=== PATIENT | female | born 1950 | race Caucasian/White ===

== ENCOUNTER 2018-04-22 08:11 | Inpatient (IN) | payer MEDICARE, OTHER ==
[2018-04-22] MEDS: LACTATED RINGER'S 1,000 ML IV* (09:10)
[2018-04-22] MEDS: DEXAMETHASONE 4 MG/ML 1 ML INJ IV (09:13)
[2018-04-22] MEDS: ACETAMINOPHEN 1000MG/100ML IV 100 ML IVPB (09:13)
[2018-04-22] MEDS: LANSOPRAZOLE 30 MG CAP PO (09:14)
[2018-04-22] MEDS: ONDANSETRON 4 MG INJ IV ×5 (09:14→23:19)
[2018-04-22] MEDS: oxyCODONE (CR) 10 MG TAB [oxyCONTIN] PO (09:14)
[2018-04-22] MEDS ORDERED: CEFAZOLIN 1 GM/50 ML (PMX) 50 ML IVPB (09:30)
[2018-04-22] MEDS ORDERED: morphine SULFATE/PF (10 MG/10 ML) INJ (11:02)
[2018-04-22] MEDS ORDERED: CEFAZOLIN 1 GM INJ (11:02)
[2018-04-22] MEDS ORDERED: PROPOFOL 20 ML (11:02)
[2018-04-22] MEDS ORDERED: MIDAZOLAM 1 MG/ML 2 ML INJ (11:02)
[2018-04-22] MEDS ORDERED: ROCURONIUM 50 MG INJ (11:02)
[2018-04-22] MEDS: TRANEXAMIC ACID 1,000 MG in NS 100 ML PRE-OP X1 IVPB (11:57)
[2018-04-22] MEDS ORDERED: oxyCODONE 5 MG TAB PO (12:00)
[2018-04-22] MEDS ORDERED: NA PHOSPHATE/BIPHOS 133 ML ENEMA PR (12:00)
[2018-04-22] MEDS ORDERED: BETHANECHOL 25 MG TAB PO (12:00)
[2018-04-22] MEDS ORDERED: BISACODYL 10 MG SUPP PR (12:00)
[2018-04-22] MEDS ORDERED: DIPHENHYDRAMINE 50 MG INJ IV ×2 (12:00→13:00)
[2018-04-22] MEDS ORDERED: NALOXONE (0.4 MG/ML) INJ IV ×2 (12:00→13:00)
[2018-04-22] MEDS ORDERED: PHENYLephrine (100 MCG/ML) 5ML SYG (12:24)
[2018-04-22] MEDS ORDERED: KETOROLAC 30 MG INJ (12:28)
[2018-04-22] MEDS ORDERED: METOCLOPRAMIDE 10 MG INJ (12:28)
[2018-04-22] MEDS ORDERED: ONDANSETRON 4 MG INJ (12:28)
[2018-04-22] MEDS ORDERED: DEXAMETHASONE 4 MG/ML 1 ML INJ (12:28)
[2018-04-22] MEDS: HIP PAIN COCKTAIL (CEFUROXIME) INJ (12:45)
[2018-04-22] MEDS: POLYMYXIN B 500000 UNIT INJ (12:45)
[2018-04-22] MEDS: BACITRACIN 50000 UNITS INJ IRR (12:45)
[2018-04-22] MEDS ORDERED: LABETALOL HCL 20MG INJ IV (13:00)
[2018-04-22] MEDS ORDERED: NALBUPHINE HCL (10 MG/1 ML) INJ IV (13:00)
[2018-04-22] MEDS ORDERED: HYDROmorphONE 0.5 MG/0.5 ML SYG IV ×2 (13:00)
[2018-04-22] MEDS ORDERED: HYDROmorphONE 1 MG/5 ML IV SYRINGE IV ×3 (13:00)
[2018-04-22] MEDS ORDERED: FENTAnyl 50 MCG/ML VIAL IV ×3 (13:00)
[2018-04-22] MEDS ORDERED: ONDANSETRON 4 MG INJ IV (13:00)
[2018-04-22] MEDS ORDERED: hydrALAzine 20 MG INJ IV (13:00)
[2018-04-22] MEDS ORDERED: OXYCODONE/ACETAMINOPHEN (5/325) TAB PO ×2 (13:00)
[2018-04-22] MEDS ORDERED: ACETAMINOPHEN 500 MG TAB PO (13:00)
[2018-04-22] MEDS ORDERED: METOCLOPRAMIDE 10 MG INJ IV (13:00)
[2018-04-22] MEDS ORDERED: MEPERIDINE 25 MG INJ IV (13:00)
[2018-04-22] MEDS ORDERED: morphine 2 MG INJ IV ×2 (13:00)
[2018-04-22] MEDS ORDERED: ROPIVACAINE 0.5 % 30 ML VIAL (13:20)
[2018-04-22] MEDS ORDERED: SUGAMMADEX SODIUM 200 MG/2 ML VIAL IV (13:29)
[2018-04-22] MEDS: TRANEXAMIC ACID 1,000 MG in NS 100 ML INTRA-OP X1 IVPB (14:00)
[2018-04-22] MEDS: CEFAZOLIN 1 GM/50 ML (PMX) 50 ML IVPB ×2 (14:33→22:23)
[2018-04-22] MEDS: SOD CHLORIDE 0.9% 1,000 ML IV ×3 (14:33→21:24)
[2018-04-22] MEDS: ASPIRIN (EC) 325 MG TAB PO ×2 (14:40→20:46)
[2018-04-22] MEDS: DOCUSATE SODIUM 100 MG CAP PO (14:41)
[2018-04-22] MEDS: ALBUMIN HUMAN 5% 250 ML IV (14:55)
[2018-04-22] MEDS: EPHEDrine SULFATE 50 MG/5 ML SYG IV ×3 (15:14→16:13)
[2018-04-22] MEDS: DIPHENHYDRAMINE 50 MG INJ IV ×2 (15:35→16:16)
[2018-04-22 18:00] LABS: ADD MAN DIFF? NO
[2018-04-22 18:01] LABS: ABNORMAL IP MESSAGE 1; BASOPHILS % 0.3 % (0.0-2.0); HEMATOCRIT 36.7 % (37.0-47.0); HEMOGLOBIN 11.4 g/dl (12.0-16.0); LYMPHOCYTES # 0.5 10^3/ul (0.8-2.9); LYMPHOCYTES % 4.7 % (15.0-51.0); MEAN CORPUSCULAR HGB CONC 31.1 g/dl (32.0-37.0); MEAN CORPUSCULAR VOLUME 90.2 fl (82.0-101.0); MEAN PLATELET VOLUME 10.7 fl (7.4-10.4); MONOCYTE # 0.1 10^3/ul (0.3-0.9); MONOCYTES % 1.1 % (0.0-11.0); NEUTROPHIL # 10.1 10^3/ul (1.6-7.5); NEUTROPHILS % 92.8 % (39.0-77.0); PLATELET COUNT 203 10^3/UL (140-415); RED BLOOD COUNT 4.07 10^6/ul (4.20-5.40); RED CELL DISTRIBUTION WIDTH 12.6 % (11.5-14.5)
[2018-04-22 18:01] LABS: WHITE BLOOD COUNT 10.9 10^3/ul (4.8-10.8)
[2018-04-22 18:19] LABS: ALANINE AMINOTRANSFERASE 40 IU/L (13-69); ALBUMIN 3.6 g/dl (3.3-4.9); ALBUMIN/GLOBULIN RATIO 1.63; ALKALINE PHOSPHATASE 46 IU/L (42-121); ANION GAP 13 (8-16); ASPARTATE AMINO TRANSFERASE 27 IU/L (15-46); BILIRUBIN,INDIRECT 0.4 mg/dl (0-1.1); BILIRUBIN,TOTAL 0.4 mg/dl (0.2-1.3); BLOOD UREA NITROGEN 14 mg/dl (7-20); CARBON DIOXIDE 23 mmol/L (21-31); CHLORIDE 110 mmol/L (97-110); GLUCOSE 158 mg/dl (70-220); POTASSIUM 4.6 mmol/L (3.5-5.1); SODIUM 141 mmol/L (135-144); TOTAL PROTEIN 5.8 g/dl (6.1-8.1)
[2018-04-22 18:25] LABS: POSITIVE DIFF @See below
[2018-04-22] MEDS: GABAPENTIN 100 MG CAP PO (20:43)
[2018-04-22] MEDS: ATORVASTATIN 20 MG TAB PO (20:46)
[2018-04-23] MEDS ORDERED: ALBUTEROL/IPRATROPIUM (NEB) 3 ML AMP HHN (01:30)
[2018-04-23] MEDS: SOD CHLORIDE 0.9% 500 ML IV ×2 (01:41→02:47)
[2018-04-23] MEDS: ONDANSETRON 4 MG INJ IV (05:20)
[2018-04-23 05:23] LABS: ADD MAN DIFF? NO
[2018-04-23 05:30] LABS: WHITE BLOOD COUNT 10.6 10^3/ul (4.8-10.8)
[2018-04-23 05:30] LABS: BASOPHILS % 0.1 % (0.0-2.0); HEMATOCRIT 29.8 % (37.0-47.0); HEMOGLOBIN 9.4 g/dl (12.0-16.0); LYMPHOCYTES % 8.9 % (15.0-51.0); MEAN CORPUSCULAR HEMOGLOBIN 28.4 pg (29.0-33.0); MEAN CORPUSCULAR HGB CONC 31.5 g/dl (32.0-37.0); MEAN PLATELET VOLUME 11.4 fl (7.4-10.4); MONOCYTE # 0.9 10^3/ul (0.3-0.9); MONOCYTES % 8.5 % (0.0-11.0); NEUTROPHIL # 8.7 10^3/ul (1.6-7.5); NEUTROPHILS % 81.9 % (39.0-77.0); PLATELET COUNT 163 10^3/UL (140-415); RED BLOOD COUNT 3.31 10^6/ul (4.20-5.40); RED CELL DISTRIBUTION WIDTH 12.8 % (11.5-14.5)
[2018-04-23 06:00] LABS: ANION GAP 11 (8-16); BLOOD UREA NITROGEN 12 mg/dl (7-20); CALCIUM 7.4 mg/dl (8.4-10.2); CARBON DIOXIDE 21 mmol/L (21-31); CHLORIDE 107 mmol/L (97-110); CREATININE 0.58 mg/dl (0.44-1.00); GLUCOSE 139 mg/dl (70-220); POTASSIUM 3.9 mmol/L (3.5-5.1); SODIUM 135 mmol/L (135-144)
[2018-04-23] MEDS: CEFAZOLIN 1 GM/50 ML (PMX) 50 ML IVPB (06:04)
[2018-04-23] MEDS: ESCITALOPRAM 10 MG TAB PO (09:54)
[2018-04-23] MEDS: CELECOXIB 200 MG CAP PO ×2 (09:54→20:30)
[2018-04-23] MEDS: DOCUSATE SODIUM 100 MG CAP PO ×2 (09:54→20:30)
[2018-04-23] MEDS: FERROUS FUMARATE (SR) TAB PO ×2 (09:55→20:30)
[2018-04-23] MEDS: GABAPENTIN 100 MG CAP PO ×2 (09:55→20:30)
[2018-04-23] MEDS: ASPIRIN (EC) 325 MG TAB PO ×2 (10:00→20:30)
[2018-04-23] MEDS: HYDROCODONE/APAP (5/325) TAB PO (10:24)
[2018-04-23] MEDS: SOD CHLORIDE 0.9% 1,000 ML IV (11:30)
[2018-04-23] MEDS: oxyCODONE 5 MG TAB PO (16:25)
[2018-04-23] MEDS: ATORVASTATIN 20 MG TAB PO (20:30)
[2018-04-24] MEDS: SOD CHLORIDE 0.9% 1,000 ML IV ×2 (01:04→13:34)
[2018-04-24] MEDS: oxyCODONE 5 MG TAB PO ×5 (03:36→21:09)
[2018-04-24 05:14] LABS: ADD MAN DIFF? NO; BASOPHILS % 0.3 % (0.0-2.0); EOSINOPHILS % 0.4 % (0.0-7.0); HEMATOCRIT 30.4 % (37.0-47.0); HEMOGLOBIN 9.8 g/dl (12.0-16.0); LYMPHOCYTES # 2.2 10^3/ul (0.8-2.9); MEAN CORPUSCULAR HEMOGLOBIN 28.7 pg (29.0-33.0); MEAN CORPUSCULAR HGB CONC 32.2 g/dl (32.0-37.0); MEAN CORPUSCULAR VOLUME 89.1 fl (82.0-101.0); MEAN PLATELET VOLUME 11.4 fl (7.4-10.4); MONOCYTES % 10.3 % (0.0-11.0); NEUTROPHIL # 6.6 10^3/ul (1.6-7.5); NEUTROPHILS % 66.2 % (39.0-77.0); PLATELET COUNT 184 10^3/UL (140-415); RED BLOOD COUNT 3.41 10^6/ul (4.20-5.40); RED CELL DISTRIBUTION WIDTH 13.2 % (11.5-14.5)
[2018-04-24 05:14] LABS: WHITE BLOOD COUNT 9.9 10^3/ul (4.8-10.8)
[2018-04-24] MEDS: PANTOPRAZOLE (EC) 40 MG TAB PO (05:36)
[2018-04-24 05:48] LABS: ANION GAP 10 (8-16); BLOOD UREA NITROGEN 17 mg/dl (7-20); CALCIUM 8.1 mg/dl (8.4-10.2); CARBON DIOXIDE 22 mmol/L (21-31); CHLORIDE 110 mmol/L (97-110); CREATININE 0.68 mg/dl (0.44-1.00); GLUCOSE 107 mg/dl (70-220); POTASSIUM 3.5 mmol/L (3.5-5.1); SODIUM 138 mmol/L (135-144)
[2018-04-24 05:52] LABS: FREE T4 (FREE THYROXINE) 1.41 ng/dl (0.78-2.44)
[2018-04-24] MEDS: DOCUSATE SODIUM 100 MG CAP PO ×2 (08:37→20:00)
[2018-04-24] MEDS: ESCITALOPRAM 10 MG TAB PO (08:37)
[2018-04-24] MEDS: CELECOXIB 200 MG CAP PO ×2 (08:37→20:00)
[2018-04-24] MEDS: FERROUS FUMARATE (SR) TAB PO ×2 (08:38→20:00)
[2018-04-24] MEDS: ASPIRIN (EC) 325 MG TAB PO ×2 (08:38→20:00)
[2018-04-24] MEDS: GABAPENTIN 100 MG CAP PO ×2 (08:38→20:00)
[2018-04-24] MEDS: ATORVASTATIN 20 MG TAB PO (20:00)
[2018-04-25] MEDS ORDERED: ONDANSETRON 4 MG INJ IV
[2018-04-25] MEDS: SOD CHLORIDE 0.9% 1,000 ML IV ×2 (02:04→14:34)
[2018-04-25 05:41] LABS: ADD MAN DIFF? NO
[2018-04-25 05:44] LABS: WHITE BLOOD COUNT 8.4 10^3/ul (4.8-10.8)
[2018-04-25 05:44] LABS: BASOPHIL # 0.1 10^3/ul (0.0-0.1); BASOPHILS % 0.6 % (0.0-2.0); EOSINOPHILS # 0.2 10^3/ul (0.0-0.5); EOSINOPHILS % 1.8 % (0.0-7.0); HEMOGLOBIN 9.2 g/dl (12.0-16.0); LYMPHOCYTES # 1.8 10^3/ul (0.8-2.9); MEAN CORPUSCULAR HEMOGLOBIN 27.6 pg (29.0-33.0); MEAN CORPUSCULAR HGB CONC 30.7 g/dl (32.0-37.0); MEAN CORPUSCULAR VOLUME 90.1 fl (82.0-101.0); MEAN PLATELET VOLUME 11.6 fl (7.4-10.4); MONOCYTES % 11.8 % (0.0-11.0); NEUTROPHIL # 5.4 10^3/ul (1.6-7.5); NEUTROPHILS % 64.3 % (39.0-77.0); PLATELET COUNT 174 10^3/UL (140-415); RED BLOOD COUNT 3.33 10^6/ul (4.20-5.40); RED CELL DISTRIBUTION WIDTH 13.2 % (11.5-14.5)
[2018-04-25 06:00] LABS: ANION GAP 10 (8-16); BLOOD UREA NITROGEN 13 mg/dl (7-20); CALCIUM 8.2 mg/dl (8.4-10.2); CARBON DIOXIDE 28 mmol/L (21-31); CHLORIDE 103 mmol/L (97-110); CREATININE 0.61 mg/dl (0.44-1.00); GLUCOSE 101 mg/dl (70-220); POTASSIUM 4.1 mmol/L (3.5-5.1); SODIUM 137 mmol/L (135-144)
[2018-04-25] MEDS: SENNA/DOCUSATE NA (8.6MG/50MG) TAB PO (06:12)
[2018-04-25] MEDS: PANTOPRAZOLE (EC) 40 MG TAB PO (06:12)
[2018-04-25] MEDS: oxyCODONE 5 MG TAB PO (06:38)
[2018-04-25] MEDS: FERROUS FUMARATE (SR) TAB PO ×2 (08:58→20:30)
[2018-04-25] MEDS: CELECOXIB 200 MG CAP PO ×2 (08:59→20:30)
[2018-04-25] MEDS: DOCUSATE SODIUM 100 MG CAP PO ×2 (08:59→20:30)
[2018-04-25] MEDS: GABAPENTIN 100 MG CAP PO ×2 (08:59→20:30)
[2018-04-25] MEDS: ESCITALOPRAM 10 MG TAB PO (08:59)
[2018-04-25] MEDS: ASPIRIN (EC) 325 MG TAB PO ×2 (08:59→20:30)
[2018-04-25] MEDS: ATORVASTATIN 20 MG TAB PO (20:30)
[2018-04-25] MEDS: MAGNESIUM HYDROXIDE 30ML CUP PO (20:30)
[2018-04-26] MEDS: SOD CHLORIDE 0.9% 1,000 ML IV (03:04)
[2018-04-26 05:17] LABS: ADD MAN DIFF? NO
[2018-04-26 05:23] LABS: WHITE BLOOD COUNT 6.9 10^3/ul (4.8-10.8)
[2018-04-26 05:23] LABS: BASOPHILS % 0.4 % (0.0-2.0); EOSINOPHILS # 0.2 10^3/ul (0.0-0.5); EOSINOPHILS % 3.4 % (0.0-7.0); HEMATOCRIT 28.5 % (37.0-47.0); HEMOGLOBIN 9.3 g/dl (12.0-16.0); LYMPHOCYTES # 1.9 10^3/ul (0.8-2.9); LYMPHOCYTES % 27.4 % (15.0-51.0); MEAN CORPUSCULAR HGB CONC 32.6 g/dl (32.0-37.0); MEAN CORPUSCULAR VOLUME 88.8 fl (82.0-101.0); MEAN PLATELET VOLUME 11.2 fl (7.4-10.4); MONOCYTE # 0.8 10^3/ul (0.3-0.9); MONOCYTES % 10.9 % (0.0-11.0); NEUTROPHIL # 3.9 10^3/ul (1.6-7.5); NEUTROPHILS % 57.2 % (39.0-77.0); PLATELET COUNT 195 10^3/UL (140-415); RED BLOOD COUNT 3.21 10^6/ul (4.20-5.40); RED CELL DISTRIBUTION WIDTH 12.9 % (11.5-14.5)
[2018-04-26] MEDS: PANTOPRAZOLE (EC) 40 MG TAB PO (05:27)
[2018-04-26] MEDS: SENNA/DOCUSATE NA (8.6MG/50MG) TAB PO (05:27)
[2018-04-26 05:54] LABS: ANION GAP 9 (8-16); BLOOD UREA NITROGEN 11 mg/dl (7-20); CALCIUM 8.3 mg/dl (8.4-10.2); CARBON DIOXIDE 31 mmol/L (21-31); CHLORIDE 106 mmol/L (97-110); CREATININE 0.64 mg/dl (0.44-1.00); GLUCOSE 101 mg/dl (70-220); POTASSIUM 3.8 mmol/L (3.5-5.1); SODIUM 142 mmol/L (135-144)
[2018-04-26] MEDS: CELECOXIB 200 MG CAP PO (09:17)
[2018-04-26] MEDS: GABAPENTIN 100 MG CAP PO (09:17)
[2018-04-26] MEDS: ASPIRIN (EC) 325 MG TAB PO (09:17)
[2018-04-26] MEDS: FERROUS FUMARATE (SR) TAB PO (09:18)
[2018-04-26] MEDS: ESCITALOPRAM 10 MG TAB PO (09:18)
[2018-04-26] MEDS: oxyCODONE 5 MG TAB PO (11:51)
== END 2018-04-26 12:08 | disposition home health service (06) | DRG 470 ==
LOC: REC 08:11 → MS1 16:34
PROC: 0SRD0J9 Replacement of Left Knee Joint with Synthetic Substitute, Cemented, Open Approach (ICD-10-PCS; principal; 2018-04-22 10:30)
DX: M17.12 Unilateral primary osteoarthritis, left knee (principal); D64.89 Other specified anemias; E78.5 Hyperlipidemia, unspecified; L29.9 Pruritus, unspecified; F32.9 Major depressive disorder, single episode, unspecified; Z72.89 Other problems related to lifestyle; I95.9 Hypotension, unspecified
CPT/HCPCS: 73560; 80048; 80053; 82533; 84439; 84443; 85025; 87086; 88304; 97110; 97116; 97162; 97166; 97530; 97535

== ENCOUNTER 2018-05-14 09:13 | Inpatient (IN) | payer MEDICARE, OTHER ==
[2018-05-14] MEDS ORDERED: oxyCODONE 5 MG TAB PO ×3 (11:00)
[2018-05-14] MEDS ORDERED: BISACODYL 10 MG SUPP PR (11:00)
[2018-05-14] MEDS ORDERED: NALOXONE (0.4 MG/ML) INJ IV (11:00)
[2018-05-14] MEDS ORDERED: MAGNESIUM HYDROXIDE 30ML CUP PO (11:00)
[2018-05-14] MEDS ORDERED: SENNA/DOCUSATE NA (8.6MG/50MG) TAB PO (11:00)
[2018-05-14] MEDS ORDERED: NA PHOSPHATE/BIPHOS 133 ML ENEMA PR (11:00)
[2018-05-14] MEDS ORDERED: BETHANECHOL 25 MG TAB PO (11:00)
[2018-05-14] MEDS: DEXAMETHASONE 4 MG/ML 1 ML INJ IV (12:00)
[2018-05-14] MEDS: ONDANSETRON 4 MG INJ IV ×4 (12:00→23:00)
[2018-05-14] MEDS ORDERED: HIP PAIN COCKTAIL (CEFUROXIME) INJ (12:00)
[2018-05-14] MEDS: TRANEXAMIC ACID 1,000 MG in NS 100 ML PRE-OP X1 IVPB (12:00)
[2018-05-14] MEDS: oxyCODONE (CR) 10 MG TAB [oxyCONTIN] PO (12:00)
[2018-05-14] MEDS: LANSOPRAZOLE 30 MG CAP PO (12:00)
[2018-05-14] MEDS: LACTATED RINGER'S 1,000 ML IV* (12:00)
[2018-05-14] MEDS: TRANEXAMIC ACID 1,000 MG in NS 100 ML INTRA-OP X1 IVPB (12:00)
[2018-05-14] MEDS: ACETAMINOPHEN 1000MG/100ML IV 100 ML IVPB (13:15)
[2018-05-14] MEDS ORDERED: FENTAnyl 50 MCG/ML VIAL (13:24)
[2018-05-14] MEDS ORDERED: MIDAZOLAM 1 MG/ML 2 ML INJ (13:24)
[2018-05-14] MEDS ORDERED: morphine SULFATE/PF (10 MG/10 ML) INJ (13:25)
[2018-05-14] MEDS: VANCOMYCIN 1 GM INJ (14:42)
[2018-05-14] MEDS: POLYMYXIN/BACITRACIN 1L IRRIG IRR (14:42)
[2018-05-14] MEDS: TOBRAMYCIN 1.2 GM POWDER (14:43)
[2018-05-14] MEDS: POLYMYXIN B 500000 UNIT INJ ×2 (14:44)
[2018-05-14] MEDS: BACITRACIN 50000 UNITS INJ IRR ×3 (14:45→14:46)
[2018-05-14] MEDS ORDERED: ROCURONIUM 50 MG INJ (15:20)
[2018-05-14] MEDS ORDERED: CEFAZOLIN 1 GM INJ (15:20)
[2018-05-14] MEDS ORDERED: LIDOCAINE 2% (SDV) 5 ML INJ (15:20)
[2018-05-14] MEDS ORDERED: ETOMIDATE 20 MG INJ (15:20)
[2018-05-14] MEDS ORDERED: ONDANSETRON 4 MG INJ (15:21)
[2018-05-14] MEDS ORDERED: HYDROmorphONE 1 MG/5 ML IV SYRINGE IV ×2 (15:30)
[2018-05-14] MEDS ORDERED: METOCLOPRAMIDE 10 MG INJ IV (15:30)
[2018-05-14] MEDS ORDERED: DIPHENHYDRAMINE 50 MG INJ IV (15:30)
[2018-05-14] MEDS ORDERED: ONDANSETRON 4 MG INJ IV (15:30)
[2018-05-14] MEDS ORDERED: FENTAnyl 50 MCG/ML VIAL IV (15:30)
[2018-05-14] MEDS ORDERED: MEPERIDINE 25 MG INJ IV (15:30)
[2018-05-14] MEDS ORDERED: VANCOMYCIN IV PER PHARMACY XX (16:00)
[2018-05-14] MEDS: ASPIRIN (EC) 325 MG TAB PO ×2 (16:19→21:18)
[2018-05-14] MEDS: CEFAZOLIN 1 GM/50 ML (PMX) 50 ML IVPB (16:19)
[2018-05-14] MEDS: DOCUSATE SODIUM 100 MG CAP PO (16:19)
[2018-05-14] MEDS ORDERED: DIPHENHYDRAMINE 50 MG INJ IM (18:00)
[2018-05-14] MEDS: DIPHENHYDRAMINE 50 MG INJ IV (18:01)
[2018-05-14] MEDS: SOD CHLORIDE 0.9% 1,000 ML IV ×2 (18:02→23:03)
[2018-05-14] MEDS: VANCOMYCIN 1 GM (PMX) 250 ML IVPB (18:02)
[2018-05-14] MEDS: GABAPENTIN 100 MG CAP PO (21:17)
[2018-05-14] MEDS: KETOROLAC 30 MG INJ IV (21:18)
[2018-05-15] MEDS: SOD CHLORIDE 0.9% 250 ML IV ×2 (02:54→04:55)
[2018-05-15] MEDS: traMADol 50 MG TAB PO ×3 (02:56→22:47)
[2018-05-15] MEDS: SOD CHLORIDE 0.9% 1,000 ML IV ×2 (04:54→17:03)
[2018-05-15] MEDS: ONDANSETRON 4 MG INJ IV (05:00)
[2018-05-15 05:04] LABS: ADD MAN DIFF? NO; BASOPHILS % 0.6 % (0.0-2.0); EOSINOPHILS # 0.3 10^3/ul (0.0-0.5); EOSINOPHILS % 4.7 % (0.0-7.0); HEMATOCRIT 28.6 % (37.0-47.0); HEMOGLOBIN 8.7 g/dl (12.0-16.0); LYMPHOCYTES # 1.1 10^3/ul (0.8-2.9); LYMPHOCYTES % 16.1 % (15.0-51.0); MEAN CORPUSCULAR HGB CONC 30.4 g/dl (32.0-37.0); MEAN CORPUSCULAR VOLUME 88.8 fl (82.0-101.0); MEAN PLATELET VOLUME 9.8 fl (7.4-10.4); MONOCYTES % 14.6 % (0.0-11.0); NEUTROPHIL # 4.1 10^3/ul (1.6-7.5); NEUTROPHILS % 62.2 % (39.0-77.0); PLATELET COUNT 381 10^3/UL (140-415); RED BLOOD COUNT 3.22 10^6/ul (4.20-5.40); RED CELL DISTRIBUTION WIDTH 12.5 % (11.5-14.5)
[2018-05-15 05:04] LABS: WHITE BLOOD COUNT 6.6 10^3/ul (4.8-10.8)
[2018-05-15 05:33] LABS: CHOL/HDL RATIO 3.5 RATIO; HDL CHOLESTEROL 29 mg/dl (35-98); LDL CHOLESTEROL,CALCULATED 58 mg/dl; TRIGLYCERIDES 86 mg/dl (0-149)
[2018-05-15 05:33] LABS: CHOLESTEROL 104 mg/dl (100-200)
[2018-05-15 05:34] LABS: ANION GAP 9 (8-16); BLOOD UREA NITROGEN 12 mg/dl (7-20); CALCIUM 9.1 mg/dl (8.4-10.2); CARBON DIOXIDE 27 mmol/L (21-31); CHLORIDE 110 mmol/L (97-110); CREATININE 0.98 mg/dl (0.44-1.00); GLUCOSE 113 mg/dl (70-220); SODIUM 141 mmol/L (135-144)
[2018-05-15] MEDS: VANCOMYCIN 1 GM (PMX) 250 ML IVPB (05:57)
[2018-05-15] MEDS: CELECOXIB 200 MG CAP PO ×2 (08:22→20:47)
[2018-05-15] MEDS: FERROUS FUMARATE (SR) TAB PO ×2 (08:22→20:47)
[2018-05-15] MEDS: DOCUSATE SODIUM 100 MG CAP PO ×2 (08:22→20:47)
[2018-05-15] MEDS: ASPIRIN (EC) 325 MG TAB PO ×2 (08:22→20:47)
[2018-05-15] MEDS: GABAPENTIN 100 MG CAP PO ×2 (08:22→20:47)
[2018-05-15] MEDS ORDERED: OXYCODONE/ACETAMINOPHEN (5/325) TAB PO ×2 (16:00)
[2018-05-15] MEDS: DIPHENHYDRAMINE 50 MG INJ IV ×2 (16:27→16:32)
[2018-05-15] MEDS: ACETAMINOPHEN 325 MG TAB PO (16:31)
[2018-05-15] MEDS ORDERED: VANCOMYCIN 1 GM (PMX) 250 ML IVPB (17:29)
[2018-05-15] MEDS: VANCOMYCIN 1 GM 250 ML IVPB (17:50)
[2018-05-15] MEDS: FISH OIL 1,000 MG CAP PO (20:47)
[2018-05-16 05:38] LABS: ADD MAN DIFF? NO
[2018-05-16 05:44] LABS: WHITE BLOOD COUNT 6.7 10^3/ul (4.8-10.8)
[2018-05-16 05:44] LABS: BASOPHILS % 0.4 % (0.0-2.0); EOSINOPHILS # 0.6 10^3/ul (0.0-0.5); EOSINOPHILS % 8.2 % (0.0-7.0); HEMATOCRIT 28.5 % (37.0-47.0); HEMOGLOBIN 9.1 g/dl (12.0-16.0); LYMPHOCYTES # 1.2 10^3/ul (0.8-2.9); LYMPHOCYTES % 17.5 % (15.0-51.0); MEAN CORPUSCULAR HEMOGLOBIN 27.3 pg (29.0-33.0); MEAN CORPUSCULAR HGB CONC 31.9 g/dl (32.0-37.0); MEAN CORPUSCULAR VOLUME 85.6 fl (82.0-101.0); MEAN PLATELET VOLUME 9.8 fl (7.4-10.4); MONOCYTE # 0.9 10^3/ul (0.3-0.9); MONOCYTES % 12.6 % (0.0-11.0); PLATELET COUNT 371 10^3/UL (140-415); RED BLOOD COUNT 3.33 10^6/ul (4.20-5.40); RED CELL DISTRIBUTION WIDTH 12.5 % (11.5-14.5)
[2018-05-16 06:15] LABS: ANION GAP 6 (8-16); BLOOD UREA NITROGEN 8 mg/dl (7-20); CARBON DIOXIDE 29 mmol/L (21-31); CHLORIDE 110 mmol/L (97-110); CREATININE 0.75 mg/dl (0.44-1.00); GLUCOSE 98 mg/dl (70-220); POTASSIUM 3.3 mmol/L (3.5-5.1); SODIUM 142 mmol/L (135-144)
[2018-05-16 06:20] LABS: VANCOMYCIN,TROUGH 10.5 ug/ml (10.0-20.0)
[2018-05-16] MEDS: VANCOMYCIN 1 GM 250 ML IVPB (06:28)
[2018-05-16] MEDS: PANTOPRAZOLE (EC) 40 MG TAB PO (06:28)
[2018-05-16] MEDS: DOCUSATE SODIUM 100 MG CAP PO ×2 (09:00→21:00)
[2018-05-16] MEDS: GABAPENTIN 100 MG CAP PO ×2 (09:07→21:00)
[2018-05-16] MEDS: FISH OIL 1,000 MG CAP PO ×2 (09:08→21:00)
[2018-05-16] MEDS: ASPIRIN (EC) 325 MG TAB PO ×2 (09:08→21:00)
[2018-05-16] MEDS: FERROUS FUMARATE (SR) TAB PO ×2 (09:08→21:00)
[2018-05-16] MEDS: CELECOXIB 200 MG CAP PO ×2 (09:08→21:00)
[2018-05-16] MEDS: traMADol 50 MG TAB PO ×2 (09:12→16:35)
[2018-05-16] MEDS: DIPHENHYDRAMINE 50 MG INJ IV (10:53)
[2018-05-16] MEDS: SOD CHLORIDE 0.9% 1,000 ML IV (12:33)
[2018-05-16] MEDS: POTASSIUM CHLORIDE (SR) 20 MEQ TAB PO (16:35)
[2018-05-16] MEDS: VANCOMYCIN 1.25 GM in SOD CHLORIDE 0.9% 250 ML IVPB (16:41)
[2018-05-16] MEDS: ONDANSETRON 4 MG INJ IV (20:42)
[2018-05-16] MEDS ORDERED: FISH OIL 1,000 MG CAP PO (21:00)
[2018-05-17] MEDS: SOD CHLORIDE 0.9% 1,000 ML IV ×2 (01:03→13:33)
[2018-05-17] MEDS: NITROGLYCERIN (SL) 0.4 MG TAB SL (01:52)
[2018-05-17 03:18] LABS: TROPONIN-I < 0.012 ng/ml (0.000-0.120)
[2018-05-17 05:14] LABS: ADD MAN DIFF? NO
[2018-05-17 05:23] LABS: BASOPHILS % 0.3 % (0.0-2.0); EOSINOPHILS # 0.8 10^3/ul (0.0-0.5); EOSINOPHILS % 9.5 % (0.0-7.0); HEMATOCRIT 29.1 % (37.0-47.0); HEMOGLOBIN 9.4 g/dl (12.0-16.0); LYMPHOCYTES # 1.2 10^3/ul (0.8-2.9); LYMPHOCYTES % 13.6 % (15.0-51.0); MEAN CORPUSCULAR HEMOGLOBIN 27.5 pg (29.0-33.0); MEAN CORPUSCULAR HGB CONC 32.3 g/dl (32.0-37.0); MEAN CORPUSCULAR VOLUME 85.1 fl (82.0-101.0); MONOCYTE # 0.9 10^3/ul (0.3-0.9); MONOCYTES % 9.9 % (0.0-11.0); NEUTROPHIL # 5.8 10^3/ul (1.6-7.5); NEUTROPHILS % 65.6 % (39.0-77.0); PLATELET COUNT 371 10^3/UL (140-415); RED BLOOD COUNT 3.42 10^6/ul (4.20-5.40); RED CELL DISTRIBUTION WIDTH 12.9 % (11.5-14.5)
[2018-05-17 05:23] LABS: WHITE BLOOD COUNT 8.8 10^3/ul (4.8-10.8)
[2018-05-17] MEDS: VANCOMYCIN 1.25 GM in SOD CHLORIDE 0.9% 250 ML IVPB (05:25)
[2018-05-17] MEDS: PANTOPRAZOLE (EC) 40 MG TAB PO (05:58)
[2018-05-17 05:59] LABS: ANION GAP 7 (8-16); BLOOD UREA NITROGEN 6 mg/dl (7-20); CALCIUM 9.5 mg/dl (8.4-10.2); CARBON DIOXIDE 32 mmol/L (21-31); CHLORIDE 106 mmol/L (97-110); CREATININE 0.69 mg/dl (0.44-1.00); GLUCOSE 125 mg/dl (70-220); POTASSIUM 3.6 mmol/L (3.5-5.1); SODIUM 141 mmol/L (135-144)
[2018-05-17] MEDS: CELECOXIB 200 MG CAP PO ×2 (09:05→21:00)
[2018-05-17] MEDS: DOCUSATE SODIUM 100 MG CAP PO ×2 (09:05→21:00)
[2018-05-17] MEDS: GABAPENTIN 100 MG CAP PO ×2 (09:05→21:00)
[2018-05-17] MEDS: FISH OIL 1,000 MG CAP PO ×2 (09:05→21:00)
[2018-05-17] MEDS: FERROUS FUMARATE (SR) TAB PO ×2 (09:06→21:00)
[2018-05-17] MEDS: ASPIRIN (EC) 325 MG TAB PO ×2 (09:06→21:04)
[2018-05-17] MEDS: CEFTRIAXONE 2 GM/50 ML (PMX) 50 ML IVPB (14:00)
[2018-05-17] MEDS: DIPHENHYDRAMINE 50 MG INJ IV (20:05)
[2018-05-17] MEDS: ACETAMINOPHEN 325 MG TAB PO (22:19)
[2018-05-18 05:59] LABS: ADD MAN DIFF? NO
[2018-05-18] MEDS: PANTOPRAZOLE (EC) 40 MG TAB PO (06:00)
[2018-05-18 06:18] LABS: WHITE BLOOD COUNT 7.5 10^3/ul (4.8-10.8)
[2018-05-18 06:18] LABS: BASOPHILS % 0.5 % (0.0-2.0); EOSINOPHILS # 0.9 10^3/ul (0.0-0.5); EOSINOPHILS % 11.3 % (0.0-7.0); HEMATOCRIT 28.2 % (37.0-47.0); LYMPHOCYTES # 1.4 10^3/ul (0.8-2.9); LYMPHOCYTES % 17.9 % (15.0-51.0); MEAN CORPUSCULAR HGB CONC 31.9 g/dl (32.0-37.0); MEAN CORPUSCULAR VOLUME 84.7 fl (82.0-101.0); MEAN PLATELET VOLUME 10.3 fl (7.4-10.4); MONOCYTE # 0.8 10^3/ul (0.3-0.9); MONOCYTES % 10.5 % (0.0-11.0); NEUTROPHIL # 4.4 10^3/ul (1.6-7.5); NEUTROPHILS % 58.5 % (39.0-77.0); PLATELET COUNT 378 10^3/UL (140-415); RED BLOOD COUNT 3.33 10^6/ul (4.20-5.40); RED CELL DISTRIBUTION WIDTH 12.8 % (11.5-14.5)
[2018-05-18 06:46] LABS: ANION GAP 7 (8-16); BLOOD UREA NITROGEN 7 mg/dl (7-20); CALCIUM 9.9 mg/dl (8.4-10.2); CARBON DIOXIDE 33 mmol/L (21-31); CHLORIDE 105 mmol/L (97-110); CREATININE 0.77 mg/dl (0.44-1.00); GLUCOSE 110 mg/dl (70-220); POTASSIUM 3.3 mmol/L (3.5-5.1); SODIUM 142 mmol/L (135-144)
[2018-05-18] MEDS: CELECOXIB 200 MG CAP PO ×2 (09:19→21:13)
[2018-05-18] MEDS: ASPIRIN (EC) 325 MG TAB PO ×2 (09:20→21:13)
[2018-05-18] MEDS: GABAPENTIN 100 MG CAP PO ×2 (09:21→21:14)
[2018-05-18] MEDS: FERROUS FUMARATE (SR) TAB PO ×2 (09:21→21:13)
[2018-05-18] MEDS: FISH OIL 1,000 MG CAP PO ×2 (09:21→21:14)
[2018-05-18] MEDS: CEFTRIAXONE 2 GM/50 ML (PMX) 50 ML IVPB (13:44)
[2018-05-18] MEDS: SOD CHLORIDE 0.9% 500 ML IV (15:05)
[2018-05-18] MEDS: traMADol 50 MG TAB PO (19:33)
[2018-05-19 05:49] LABS: ADD MAN DIFF? NO; BASOPHIL # 0.1 10^3/ul (0.0-0.1); BASOPHILS % 0.7 % (0.0-2.0); EOSINOPHILS # 0.9 10^3/ul (0.0-0.5); HEMATOCRIT 29.1 % (37.0-47.0); HEMOGLOBIN 9.2 g/dl (12.0-16.0); LYMPHOCYTES # 1.7 10^3/ul (0.8-2.9); LYMPHOCYTES % 24.5 % (15.0-51.0); MEAN CORPUSCULAR HGB CONC 31.6 g/dl (32.0-37.0); MEAN CORPUSCULAR VOLUME 85.3 fl (82.0-101.0); MEAN PLATELET VOLUME 10.1 fl (7.4-10.4); MONOCYTE # 0.6 10^3/ul (0.3-0.9); MONOCYTES % 8.8 % (0.0-11.0); NEUTROPHIL # 3.6 10^3/ul (1.6-7.5); NEUTROPHILS % 51.7 % (39.0-77.0); PLATELET COUNT 408 10^3/UL (140-415); RED BLOOD COUNT 3.41 10^6/ul (4.20-5.40)
[2018-05-19] MEDS: PANTOPRAZOLE (EC) 40 MG TAB PO (05:55)
[2018-05-19 06:49] LABS: ANION GAP 10 (8-16); BLOOD UREA NITROGEN 14 mg/dl (7-20); CALCIUM 10.1 mg/dl (8.4-10.2); CARBON DIOXIDE 32 mmol/L (21-31); CHLORIDE 102 mmol/L (97-110); CREATININE 0.97 mg/dl (0.44-1.00); GLUCOSE 98 mg/dl (70-220); POTASSIUM 4.4 mmol/L (3.5-5.1); SODIUM 140 mmol/L (135-144)
[2018-05-19] MEDS: ASPIRIN (EC) 325 MG TAB PO ×2 (09:05→20:43)
[2018-05-19] MEDS: GABAPENTIN 100 MG CAP PO ×2 (09:05→20:43)
[2018-05-19] MEDS: CELECOXIB 200 MG CAP PO ×2 (09:05→20:43)
[2018-05-19] MEDS: FISH OIL 1,000 MG CAP PO ×2 (09:05→20:43)
[2018-05-19] MEDS: FERROUS FUMARATE (SR) TAB PO ×2 (09:05→20:43)
[2018-05-19] MEDS: DIPHENHYDRAMINE 50 MG INJ IV ×2 (11:54→16:14)
[2018-05-19] MEDS: LIDOCAINE 1% (MPF) 5 ML VIAL SC (15:05)
[2018-05-19] MEDS: CEFTRIAXONE 2 GM/50 ML (PMX) 50 ML IVPB (16:14)
[2018-05-20 05:22] LABS: ADD MAN DIFF? NO
[2018-05-20 05:27] LABS: WHITE BLOOD COUNT 6.1 10^3/ul (4.8-10.8)
[2018-05-20 05:27] LABS: BASOPHIL # 0.1 10^3/ul (0.0-0.1); BASOPHILS % 1.1 % (0.0-2.0); EOSINOPHILS # 0.9 10^3/ul (0.0-0.5); EOSINOPHILS % 14.2 % (0.0-7.0); HEMOGLOBIN 9.3 g/dl (12.0-16.0); LYMPHOCYTES # 1.3 10^3/ul (0.8-2.9); LYMPHOCYTES % 21.9 % (15.0-51.0); MEAN CORPUSCULAR HGB CONC 32.1 g/dl (32.0-37.0); MEAN CORPUSCULAR VOLUME 84.1 fl (82.0-101.0); MEAN PLATELET VOLUME 9.9 fl (7.4-10.4); MONOCYTE # 0.5 10^3/ul (0.3-0.9); MONOCYTES % 8.3 % (0.0-11.0); NEUTROPHIL # 3.2 10^3/ul (1.6-7.5); PLATELET COUNT 374 10^3/UL (140-415); RED BLOOD COUNT 3.45 10^6/ul (4.20-5.40); RED CELL DISTRIBUTION WIDTH 12.9 % (11.5-14.5)
[2018-05-20] MEDS: PANTOPRAZOLE (EC) 40 MG TAB PO (06:00)
[2018-05-20 06:16] LABS: MAGNESIUM 1.8 mg/dl (1.7-2.5)
[2018-05-20 06:16] LABS: PHOSPHORUS 5.2 mg/dl (2.5-4.9)
[2018-05-20 06:36] LABS: ANION GAP 8 (8-16); CALCIUM 9.8 mg/dl (8.4-10.2); CARBON DIOXIDE 29 mmol/L (21-31); CHLORIDE 108 mmol/L (97-110); CREATININE 0.81 mg/dl (0.44-1.00); GLUCOSE 102 mg/dl (70-220); POTASSIUM 4.1 mmol/L (3.5-5.1); SODIUM 141 mmol/L (135-144)
[2018-05-20 06:38] LABS: BLOOD UREA NITROGEN 16 mg/dl (7-20)
[2018-05-20] MEDS ORDERED: CEPASTAT LOZENGE MT (07:30)
[2018-05-20] MEDS: CELECOXIB 200 MG CAP PO ×2 (09:02→21:08)
[2018-05-20] MEDS: GABAPENTIN 100 MG CAP PO ×2 (09:03→21:09)
[2018-05-20] MEDS: FISH OIL 1,000 MG CAP PO ×2 (09:03→21:09)
[2018-05-20] MEDS: ASPIRIN (EC) 325 MG TAB PO ×2 (09:03→21:09)
[2018-05-20] MEDS: FERROUS FUMARATE (SR) TAB PO ×2 (09:03→21:09)
[2018-05-20] MEDS: CEFTRIAXONE 2 GM/50 ML (PMX) 50 ML IVPB (14:17)
[2018-05-21 05:27] LABS: ADD MAN DIFF? NO
[2018-05-21 05:32] LABS: BASOPHIL # 0.1 10^3/ul (0.0-0.1); BASOPHILS % 0.8 % (0.0-2.0); HEMATOCRIT 30.2 % (37.0-47.0); HEMOGLOBIN 9.5 g/dl (12.0-16.0); LYMPHOCYTES # 1.6 10^3/ul (0.8-2.9); LYMPHOCYTES % 22.8 % (15.0-51.0); MEAN CORPUSCULAR HGB CONC 31.5 g/dl (32.0-37.0); MEAN CORPUSCULAR VOLUME 85.8 fl (82.0-101.0); MEAN PLATELET VOLUME 9.9 fl (7.4-10.4); MONOCYTE # 0.6 10^3/ul (0.3-0.9); MONOCYTES % 8.3 % (0.0-11.0); NEUTROPHIL # 3.8 10^3/ul (1.6-7.5); NEUTROPHILS % 52.8 % (39.0-77.0); PLATELET COUNT 360 10^3/UL (140-415); RED BLOOD COUNT 3.52 10^6/ul (4.20-5.40); RED CELL DISTRIBUTION WIDTH 12.9 % (11.5-14.5)
[2018-05-21 05:32] LABS: WHITE BLOOD COUNT 7.1 10^3/ul (4.8-10.8)
[2018-05-21] MEDS: PANTOPRAZOLE (EC) 40 MG TAB PO (05:46)
[2018-05-21 06:05] LABS: PHOSPHORUS 4.4 mg/dl (2.5-4.9)
[2018-05-21 06:05] LABS: MAGNESIUM 1.9 mg/dl (1.7-2.5)
[2018-05-21 06:06] LABS: ANION GAP 9 (8-16); BLOOD UREA NITROGEN 20 mg/dl (7-20); CALCIUM 9.2 mg/dl (8.4-10.2); CARBON DIOXIDE 28 mmol/L (21-31); CHLORIDE 109 mmol/L (97-110); CREATININE 0.86 mg/dl (0.44-1.00); GLUCOSE 104 mg/dl (70-220); SODIUM 142 mmol/L (135-144)
[2018-05-21] MEDS: ASPIRIN (EC) 325 MG TAB PO (10:37)
[2018-05-21] MEDS: GABAPENTIN 100 MG CAP PO (10:38)
[2018-05-21] MEDS: FERROUS FUMARATE (SR) TAB PO (10:38)
[2018-05-21] MEDS: FISH OIL 1,000 MG CAP PO (10:38)
[2018-05-21] MEDS: CELECOXIB 200 MG CAP PO (10:38)
[2018-05-21] MEDS: CEFTRIAXONE 2 GM/50 ML (PMX) 50 ML IVPB (13:47)
== END 2018-05-21 17:37 | disposition home health service (06) | DRG 486 ==
LOC: REC 09:13 → MS1 17:00
PROC: 0SPD09Z Removal of Liner from Left Knee Joint, Open Approach (ICD-10-PCS; principal; 2018-05-14 13:22)
PROC: 0SUW09Z Supplement Left Knee Joint, Tibial Surface with Liner, Open Approach (ICD-10-PCS; 2018-05-14 13:22)
PROC: 02HV33Z Insertion of Infusion Device into Superior Vena Cava, Percutaneous Approach (ICD-10-PCS; 2018-05-14 13:22)
PROC: B548ZZA Ultrasonography of Superior Vena Cava, Guidance (ICD-10-PCS; 2018-05-14 13:22)
DX: T84.54XA Infection and inflammatory reaction due to internal left knee prosthesis, initial encounter (principal); L03.116 Cellulitis of left lower limb; E78.5 Hyperlipidemia, unspecified; D64.9 Anemia, unspecified; K21.9 Gastro-esophageal reflux disease without esophagitis; B95.7 Other staphylococcus as the cause of diseases classified elsewhere; Y79.2 Prosthetic and other implants, materials and accessory orthopedic devices associated with adverse incidents
CPT/HCPCS: 36569; 71045; 73560; 76937; 80048; 80061; 80202; 83735; 84100; 84484; 85025; 87040; 87070; 87075; 87102; 88300; 88304; 93005; 97110; 97116; 97162; 97165; 97530; 97535